=== PATIENT | female | born 1985 | race Caucasian/White ===

== ENCOUNTER 2018-05-05 08:10 | Emergency (ER) | payer BC ==
[~2018-05-05] VITALS: Ht 167.6 cm; Wt 100.0 kg
[2018-05-05 08:16] VITALS: BP 132/75; PULSE 88
[2018-05-05] MEDS ORDERED: PRENATAL (08:18)
[2018-05-05 08:48] LABS: BASO % 0.3 % (0.0-2.0); EOS # 0.1 (0.0-0.7); EOS % 0.7 % (0-4.0); GRAN # 5.2 (1.4-6.5); GRAN % 71.9 % (42.2-75.2); HEMATOCRIT 37.3 % (37.0-47.0); HEMOGLOBIN 11.9 g/dl (12.5-16.0); LYMPH # 1.5 (1.2-3.4); LYMPH % 20.2 % (20.0-51.0); MEAN CELL VOLUME 78 fl (80.0-100.0); MEAN CORPUSCULAR HEMOGLOBIN 25 pg (27.0-31.0); MEAN CORPUSCULAR HGB CONC 32 g/dl (33.0-37.0); MEAN PLATELET VOLUME 10.4 fl (7.4-10.4); MONO # 0.5 (0.1-0.6); MONO % 6.6 % (1.7-9.3); PLATELET COUNT 280 K/mm3 (130-400); RED BLOOD COUNT 4.77 M/mm3 (4.10-5.30); REDCELL DISTRIBUTION WIDTH-CV 16.8 % (11.5-14.5)
[2018-05-05 09:01] LABS: ALBUMIN 4.3 gm/dL (3.5-5.0); BILIRUBIN,TOTAL 0.5 mg/dL (0.0-1.0); CALCIUM 9.1 mg/dL (8.4-10.2); CREATININE, serum 0.65 mg/dL (0.52-1.25); POTASSIUM 3.8 mmol/L (3.4-5.0); TOTAL PROTEIN 8.2 gm/dL (6.4-8.2)
[2018-05-05 09:18] LABS: COLLECTION METHOD CLEAN CATCH
[2018-05-05 09:27] LABS: MUCOUS Present /lpf; PH 6 (5-8); SQUAMOUS EPITHELIAL 0-2 /hpf; URINE APPEARANCE Clear; URINE BILIRUBIN Negative (NEGATIVE); URINE BLOOD 3+ (NEGATIVE); URINE COLOR Straw; URINE GLUCOSE Negative (NEGATIVE); URINE KETONE Negative (NEGATIVE); URINE LEUKOCYTE ESTERASE Negative (NEGATIVE); URINE NITRATE Negative (NEGATIVE); URINE PROTEIN(semi-quant) Negative (NEGATIVE); URINE UROBILINOGEN Negative (NEGATIVE)
[2018-05-05 09:30] LABS: URINE BACTERIA Rare /hpf; URINE RBC None Seen /hpf
[2018-05-05 11:24] VITALS: TEMP 99.3
== END 2018-05-05 11:53 | disposition home or self-care (01) ==
LOC: COL.ER 08:10
PROVIDERS: Emergency Medicine
DX: O26.851 Spotting complicating pregnancy, first trimester (principal); Z86.19 Personal history of other infectious and parasitic diseases; Z3A.01 Less than 8 weeks gestation of pregnancy

== ENCOUNTER 2019-08-07 15:25 | Inpatient (IN) | payer BC ==
[2019-08-07] VITALS (8 sets, daily range): BP systolic 117–135; BP diastolic 62–77; PULSE 78–93; TEMP 98.2–989.1
[~2019-08-07] VITALS: Ht 167.6 cm; Wt 124.5 kg
[~2019-08-07 15:25] MED LIST: PRENATAL
[2019-08-07] MEDS ORDERED: ZOVIRAX400 MG PO (16:28)
[2019-08-07 18:00] LABS: HEMOGLOBIN 10.3 g/dl (12.5-16.0); MEAN CELL VOLUME 78 fl (80.0-100.0); MEAN CORPUSCULAR HEMOGLOBIN 24 pg (27.0-31.0); MEAN CORPUSCULAR HGB CONC 31 g/dl (33.0-37.0); MEAN PLATELET VOLUME 12.4 fl (7.4-10.4); PLATELET COUNT 268 K/mm3 (130-400); REDCELL DISTRIBUTION WIDTH-CV 16.6 % (11.5-14.5)
[2019-08-07 18:03] LABS: HEMATOCRIT 33.7 % (37.0-47.0)
[2019-08-07 18:11] LABS: ALBUMIN 3.5 gm/dL (3.5-5.0); BILIRUBIN,TOTAL 0.3 mg/dL (0.0-1.0); CALCIUM 9.1 mg/dL (8.4-10.2); CREATININE, serum 0.6 (0.52-1.25); POTASSIUM 3.8 mmol/L (3.4-5.0); TOTAL PROTEIN 7.3 gm/dL (6.4-8.2)
[2019-08-08] VITALS (47 sets, daily range): BP systolic 100–158; BP diastolic 56–112; PULSE 74–108; TEMP 97.5–98.8
--- NOTE | 2019-08-08 06:15 | NUR ---
Bedside report received from Ana STEVENSON. 0630: Patient off monitor to void. 0720: FHR difficult to monitor due to patient sitting forward. 0730: Patient off monitor to void. 0742: at bedside to assess patient and FHR strip. SONO done at this time. SVE per physician:closed/-3. Dr. Jones discussing plan of care for the day. 0820: Difficulty tracing FHR and monitor being adjusted. 0855: Patient off monitor to void. 0900: Patient sitting in rocking chair and difficulty tracing FHR, this RN adjusting monitor. 0915: Patient sitting in bed. 1000: Patient wedged left and FHR monitor adjusted.
--- NOTE | 2019-08-08 11:40 | NUR ---
Patient on birthing ball and FHR difficult to trace due to maternal position, monitor being adjusted. 1215: Dr Jones at bedside and assessing patient and FHR strip. SVE per physician-closed/-3. Dr. Jones talks to patient and spouse about options and risks associated. 1220: Patient/spouse agree to go ahead and do . Dr. Jones informs patient on what is to be expected/plan of care/process/risks. Dr. Segura states that the surgery will happen later this afternoon and will update with a time as soon as he speaks with PRODUCT/INDUSTRY CONSULTANT and doctor assisting. Dr. Jones orders to stop pitocin and patient can walk and intermittent monitoring until surgery. 1222: Pitocin off. 1226: Patient off monitor to ambulate. 1320: Patient back on monitor.
--- NOTE | 2019-08-08 14:35 | NUR ---
Patient back on monitor. 1500: Patient off monitor to shower and ambulate. 1610: Left forearm IV infiltrated and discontinued. IV started in right hand and LR infusing and Preop medications given as ordered. Patient prepped for surgery.
--- NOTE | 2019-08-08 16:57 | NUR ---
Patient off monitor and ambulates to OR. Patient sits up on bed and Yuliet BONILLA begins to place spinal. Yuliet BONILLA having difficulty placing spinal. 1735: Patient laid back and prepped for surgery. 1737: FHR doppler-135bpm.
[2019-08-09 04:30] VITALS: BP 125/77; PULSE 80; TEMP 98.3
[2019-08-09 07:17] LABS: HEMOGLOBIN 8.3 g/dl (12.5-16.0)
[2019-08-09 07:18] LABS: HEMATOCRIT 27.6 % (37.0-47.0)
[2019-08-09 08:30] VITALS: BP 139/80; PULSE 88; TEMP 98.1
[2019-08-09] MEDS ORDERED: MOTRIN 600600 MG/TAB PO (09:00)
[2019-08-09] MEDS ORDERED: PERCOCET 325 MG1 TA2 PO (09:00)
--- NOTE | 2019-08-09 09:59 | NUR ---
Initial visit; Parents thanked [employer]er for offering congratulations and God's blessings for the of their daughter. Cd Mixer thanked family for choosing [facility].
[2019-08-09 12:00] VITALS: BP 134/82; PULSE 90; TEMP 98.2
[2019-08-09 16:00] VITALS: BP 134/78; PULSE 87; TEMP 98.3
[2019-08-09 20:30] VITALS: BP 134/76; PULSE 80; TEMP 98.8
[2019-08-10 07:00] VITALS: BP 138/80; PULSE 108; TEMP 98.3
--- NOTE | 2019-08-10 10:19 | NUR ---
Visited and provided spiritual care.
[2019-08-10 16:00] VITALS: BP 138/64; PULSE 98; TEMP 97.8
[2019-08-10 20:30] VITALS: BP 102/75; PULSE 107; TEMP 98.6
[2019-08-11 07:24] VITALS: BP 135/78; PULSE 95; TEMP 98
--- NOTE | 2019-08-11 11:30 | NUR ---
Assumed care of patient. Request percocet. Percocet 5/325 mg one given per request and as ordered.
--- NOTE | 2019-08-11 12:40 | NUR ---
Rests in bed, alert. Ibuprofen 600 mg given as ordered.
== END 2019-08-11 14:20 | disposition home or self-care (01) | DRG 788 ==
LOC: LDR 15:25 → OB 08-08 18:42
PROVIDERS: ADMIT Obstetrics & Gynecology
PROC: 3E0P7VZ Introduction of Hormone into Female Reproductive, Via Natural or Artificial Opening (ICD-10-PCS; 2019-08-07)
PROC: 3E033VJ Introduction of Other Hormone into Peripheral Vein, Percutaneous Approach (ICD-10-PCS; 2019-08-07)
PROC: 10D00Z1 Extraction of Products of Conception, Low, Open Approach (ICD-10-PCS; principal; 2019-08-08)
DX: O14.04 Mild to moderate pre-eclampsia, complicating childbirth (principal); O99.02 Anemia complicating childbirth; D64.9 Anemia, unspecified; O99.824 Streptococcus B carrier state complicating childbirth; Z3A.37 37 weeks gestation of pregnancy; Z37.0 Single live birth; O99.62 Diseases of the digestive system complicating childbirth; K21.9 Gastro-esophageal reflux disease without esophagitis; O99.214 Obesity complicating childbirth; E66.9 Obesity, unspecified; O34.83 Maternal care for other abnormalities of pelvic organs, third trimester; O61.0 Failed medical induction of labor; Z88.0 Allergy status to penicillin
CPT/HCPCS: J0690; J1885; J2250; J2270; J2370; J2405; J2590; J3010; J7120

== ENCOUNTER → 2019-08-13 | Outpatient (CLI) | payer BC ==
[~2019-08-13] MED LIST changes: +MOTRIN 600600 MG/TAB PO; +PERCOCET 325 MG1 TA2 PO; +ZOVIRAX400 MG PO
--- NOTE | 2019-08-13 17:11 | NUR ---
Pt, Zahraa Mar, presents for outpatient consult with five day old baby girl, Candida Mar, after being referred by Dr. Boudreaux. They are accompanied by her spouse, Cruz. Candida was born at 36+ weeks gestation by c/section and weighed 7#0.2oz (3180 gms). was complicated by late delivery, flat nipples, large breasts, c/section, and low blood glucose. At time of discharge Candida weighed 6#9oz (2980 gms) and was being fed with nipple shield and SNS. Pt felt her milk supply was increasing so discontinued the SNS about 24-36 hours ago. Yesterday Candida had 6 voids and 4 green stools. So far today she has had 4 voids and one, too small to count, green stool. Candida had her bilirubin checked prior to this consult for her yellow skin tones. She is pretty sleepy at this time, not getting very disturbed with the undressing and laying on the scale. Today Candida weighs 6#5.7oz (2882 gms), for a 9% loss from . A nipple shield is placed for the feeding, she has some, but overall poor effort at . Pt states she has less effort now than normally. Total transfer pre pre and post feed weight is 10gms. Candida is then fed by bottle, taking 50ml per post feed weight; total gain is 60gms. POC: 3-step feeding plan: Offer breast each feeding, limit time to 10 minutes. Supplement 2oz EBM or formula after each feeding, and pump bilaterally for 10-15 minutes, saving milk collected for supplement feeds. Collection, storage, use of formula and EBM reviewed. F/U: By telephone in 3 days, to determine progress of milk supply, and follow up consults. Pt verbalizes understanding, handouts provided, questions invited and answered.
== END ==
LOC: LAC 15:12
DX: Z39.1 Encounter for care and examination of lactating mother (principal); Z71.89 Other specified counseling

== ENCOUNTER 2020-09-09 17:32 | Outpatient (CLI) | payer BC ==
[~2020-09-09] VITALS: Wt 114.1 kg
[2020-09-09] VITALS (8 sets, daily range): BP systolic 125–133; BP diastolic 60–71; PULSE 81–92
--- NOTE | 2020-09-09 17:25 | NUR ---
Presents to labor and delivery sent over by office. heart monitor on. heart rate in the 180s then comes down to the 140s, then back up to 180s. Iv start to right hand. Lactated ringers infusing bolus as ordered. Lab obtained and sent to lab.
[2020-09-09 18:12] LABS: COLLECTION METHOD CLEAN CATCH
[2020-09-09 18:19] LABS: BASO % 0.1 % (0.0-2.0); EOS # 0.2 (0.0-0.7); EOS % 1.5 % (0-4.0); GRAN # 7.4 (1.4-6.5); GRAN % 74.8 % (42.2-75.2); HEMATOCRIT 39.2 % (37.0-47.0); HEMOGLOBIN 13.3 g/dl (12.5-16.0); LYMPH # 1.6 (1.2-3.4); MEAN CELL VOLUME 85 fl (80.0-100.0); MEAN CORPUSCULAR HEMOGLOBIN 29 pg (27.0-31.0); MEAN CORPUSCULAR HGB CONC 34 g/dl (33.0-37.0); MEAN PLATELET VOLUME 10.7 fl (7.4-10.4); MONO # 0.7 (0.1-0.6); MONO % 7.2 % (1.7-9.3); PLATELET COUNT 249 K/mm3 (130-400); REDCELL DISTRIBUTION WIDTH-CV 14.8 % (11.5-14.5)
[2020-09-09 18:25] LABS: PH 6 (5-8); SQUAMOUS EPITHELIAL 0-2 /hpf; URINE APPEARANCE Hazy; URINE BACTERIA Many /hpf; URINE BILIRUBIN Negative (NEGATIVE); URINE BLOOD Negative (NEGATIVE); URINE COLOR Yellow; URINE GLUCOSE Negative (NEGATIVE); URINE KETONE 1+ (NEGATIVE); URINE LEUKOCYTE ESTERASE Negative (NEGATIVE); URINE NITRATE Negative (NEGATIVE); URINE PROTEIN(semi-quant) Negative (NEGATIVE); URINE RBC 0-2 /hpf; URINE UROBILINOGEN Negative (NEGATIVE)
--- NOTE | 2020-09-09 18:30 | NUR ---
1829- BEDSIDE REPORT RECEIVED, CARE ASSUMED. PT ON MONITOR AND IN NO APPARENT DISTRESS. EFM CONTINUES TO TRACE IN 180'S WITH SPORADIC DIPS DOWN TO 140'S AND RETURNS TO 180'S AGAIN. 1911- PT UP TO BATHROOM. 1912- DR DAVENPORT CALLS AND ORDERS ANTIBODY SCREEN. LAB NOTIFIED AND STATES A TYPE AND SCREEN MUST BE ORDERED. LAB NOTIFIED TO COME DRAW PT. 1917- PT BACK ON MONITOR. UPDATED ON PLAN OF CARE AND QUESTIONS ANSWERED. 1929- PT EFM CONTINUES TO HAVE JUMPS IN BASELINE FROM 180'S TO 140'S. 1999- LAB CALLED AND REMINDED TO COME DRAW LABWORK. 2009- DR DAVENPORT REVIEWS LABS, EFM, AND DISCUSSES PLAN OF CARE WITH PT. QUESTIONS ANSWERED. 2034- DR DAVENPORT AT BEDSIDE. DISCUSSES PLAN FOR CONTINUING CARE WITH [facility]. PT PREFERS TO DRIVE HERSELF TO [facility] DUE TO NOT BEING AND EMERGENT SITUATION. DR DAVENPORT ANSWERS QUESTIONS.
[2020-09-09 18:31] LABS: ALBUMIN 3.9 gm/dL (3.5-5.0); BILIRUBIN,TOTAL 0.5 mg/dL (0.0-1.0); CALCIUM 8.9 mg/dL (8.4-10.2); CREATININE, serum 0.49 (0.52-1.25); POTASSIUM 3.8 mmol/L (3.4-5.0); TOTAL PROTEIN 7.4 gm/dL (6.4-8.2)
[2020-09-09 18:33] LABS: TRICYCLIC ANTIDEPRESS URINE NEGATIVE
[2020-09-09] MEDS ORDERED: ASPIRIN 81M81 MG/TA2 PO (18:46)
[2020-09-09 19:01] LABS: THYROID STIMULATING HORMONE 2.19 uIU/mL (0.465-4.680)
--- NOTE | 2020-09-09 21:20 | NUR ---
2119- IV SITE DC'D WITH [facility] INTACT. PT OFF MONITORS FOR DISMISSAL. 2136- DISMISSAL INSTRUCTIONS GIVEN AND COPY OF VISIT FOR [facility]. QUESTIONS ANSWERED. PT VERBALIZES UNDERSTANDING THAT SHE IS TO PROCEED TO [facility] PER HER OWN VEHICLE TONIGHT FOR CONTINUED MONITORING. PT DISMISSED AMBULATORY ACCOMPANIED BY .
== END 2020-09-09 21:37 | disposition home or self-care (01) ==
LOC: LDRO 17:32 → LDR 17:58 → LDRO 21:37
PROVIDERS: Obstetrics & Gynecology
DX: O36.8320 Maternal care for abnormalities of the fetal heart rate or rhythm, second trimester, not applicable or unspecified (principal); Z3A.23 23 weeks gestation of pregnancy
CPT/HCPCS: OP; J7120

== ENCOUNTER 2020-12-31 05:30 | Inpatient (IN) | payer BC ==
[~2020-12-31] VITALS: Ht 167.6 cm; Wt 119.1 kg
[2020-12-31] VITALS (19 sets, daily range): BP systolic 114–140; BP diastolic 37–88; PULSE 69–105; TEMP 98.1–98.6
--- NOTE | 2020-12-31 05:30 | NUR ---
Patient ambulatory to [facility] 1 with through back door of unit for Covid + status. Plan of care reviewed and patient oriented to room. Consents signed.
[2020-12-31 05:54] LABS: BASO % 0.4 % (0.0-2.0); EOS # 0.1 (0.0-0.7); EOS % 1.3 % (0-4.0); GRAN # 6.2 (1.4-6.5); GRAN % 73.1 % (42.2-75.2); HEMOGLOBIN 12.8 g/dl (12.5-16.0); LYMPH # 1.5 (1.2-3.4); LYMPH % 17.2 % (20.0-51.0); MEAN CELL VOLUME 87 fl (80.0-100.0); MEAN CORPUSCULAR HEMOGLOBIN 29 pg (27.0-31.0); MEAN CORPUSCULAR HGB CONC 33 g/dl (33.0-37.0); MEAN PLATELET VOLUME 11.3 fl (7.4-10.4); MONO # 0.6 (0.1-0.6); MONO % 7.6 % (1.7-9.3); PLATELET COUNT 228 K/mm3 (130-400); RED BLOOD COUNT 4.48 M/mm3 (4.10-5.30); REDCELL DISTRIBUTION WIDTH-CV 15.1 % (11.5-14.5)
[2020-12-31] MEDS ORDERED: ZOVIRAX400 MG PO (06:37)
[2021-01-01 00:44] VITALS: BP 108/60; PULSE 99
[2021-01-01 04:36] VITALS: BP 136/74; PULSE 86; TEMP 97.7
[2021-01-01 06:47] LABS: HEMOGLOBIN 11.5 g/dl (12.5-16.0)
[2021-01-01 06:52] LABS: HEMATOCRIT 35.5 % (37.0-47.0)
[2021-01-01 08:30] VITALS: BP 128/59; PULSE 96; TEMP 98.2
[2021-01-01] MEDS ORDERED: PERCOCET 325 MG1 TA2 PO (09:21)
[2021-01-01] MEDS ORDERED: MOTRIN 600600 MG/TAB PO (09:21)
--- NOTE | 2021-01-01 14:00 | NUR ---
Rests in bed, alert. Percocet 5/325 mg two, ibuprofen 600 mg, given per request and as ordered.
[2021-01-01 18:00] VITALS: BP 139/82; PULSE 83; TEMP 97.9
[2021-01-01 20:05] VITALS: BP 128/77; PULSE 95; TEMP 97.8
[2021-01-02 07:00] VITALS: BP 121/70; PULSE 78; TEMP 97.7
== END 2021-01-02 11:15 | disposition home or self-care (01) | DRG 786 ==
LOC: LDR 05:30 → OB 09:59 → LDR 01-02 11:15
PROVIDERS: ADMIT Obstetrics & Gynecology
PROC: 10D00Z1 Extraction of Products of Conception, Low, Open Approach (ICD-10-PCS; principal; 2020-12-31)
DX: O34.211 Maternal care for low transverse scar from previous cesarean delivery (principal); U07.1 COVID-19; O98.52 Other viral diseases complicating childbirth; O99.824 Streptococcus B carrier state complicating childbirth; B00.9 Herpesviral infection, unspecified; O13.4 Gestational [pregnancy-induced] hypertension without significant proteinuria, complicating childbirth; O99.214 Obesity complicating childbirth; Z3A.39 39 weeks gestation of pregnancy; Z37.0 Single live birth
CPT/HCPCS: J0690; J1100; J1885; J2405; J2550; J2590; J2765; J7120

== ENCOUNTER → 2020-12-31 | Outpatient (CLI) | payer BC ==
[~2020-12-31] MED LIST changes: +ASPIRIN 81M81 MG/TA2 PO
== END ==
LOC: ZCOL.LAB 12-28 10:00
DX: U07.1 COVID-19 (principal)